=== PATIENT | male | born 1955 | race Caucasian/White ===

== ENCOUNTER 2018-02-25 05:19 | Inpatient (IN) | payer OTHER ==
[2018-02-25] MEDS ORDERED: GELATIN SIZE 100 SPONGE (06:08)
[2018-02-25] MEDS ORDERED: THROMBIN 5000 UNIT VIAL (06:09)
[2018-02-25] MEDS ORDERED: MIDAZOLAM 5 ML ×2 (06:59→08:50)
[2018-02-25] MEDS ORDERED: PHENYLephrine (100 MCG/ML) 5ML SYG ×2 (07:06→09:54)
[2018-02-25] MEDS ORDERED: POTASSIUM CHLORIDE 40 MEQ INJ (07:18)
[2018-02-25] MEDS ORDERED: HEPARIN 1000 UNITS/ML 10 ML INJ ×2 (07:18→08:30)
[2018-02-25] MEDS ORDERED: MAGNESIUM SULFATE (MG) 50% 10 ML INJ (07:19)
[2018-02-25] MEDS ORDERED: LIDOCAINE 100 MG SYRINGE (07:19)
[2018-02-25] MEDS ORDERED: AMINOCAPROIC ACID 5 GM INJ ×4 (07:19→09:55)
[2018-02-25] MEDS ORDERED: NA BICARBONATE 8.4% 50 ML SYG (07:19)
[2018-02-25] MEDS ORDERED: PHENYLephrine 10 MG INJ (07:20)
[2018-02-25] MEDS ORDERED: ALBUMIN HUMAN 25% 200 ML (07:20)
[2018-02-25] MEDS ORDERED: MANNITOL 20% 250 ML IV (07:20)
[2018-02-25] MEDS ORDERED: CA CHLORIDE 10% 10 ML SYRINGE (07:22)
[2018-02-25] MEDS ORDERED: CEFAZOLIN 1 GM INJ ×2 (08:09→10:08)
[2018-02-25] MEDS ORDERED: FUROSEMIDE 20 MG INJ (08:14)
[2018-02-25] MEDS ORDERED: HEPARIN 10,000 UNITS/ML 1 ML INJ (08:30)
[2018-02-25] MEDS: HEPARIN 1000 UNITS/ML 10 ML INJ (08:51)
[2018-02-25] MEDS: PAPAVERINE 60 MG INJ (08:52)
[2018-02-25] MEDS: VANCOMYCIN 1 GM INJ (08:52)
[2018-02-25] MEDS ORDERED: PROTAMINE 250 MG INJ (09:59)
[2018-02-25] MEDS ORDERED: hydrALAzine 20 MG INJ (10:18)
[2018-02-25] MEDS: ASPIRIN 600 MG SUPP PR (10:53)
[2018-02-25] MEDS ORDERED: GLUCOSE GEL 15 GRAM TUBE PO ×2 (11:00)
[2018-02-25] MEDS ORDERED: GLUCOSE GEL 15 GRAM TUBE BUCCAL (11:00)
[2018-02-25] MEDS ORDERED: HYDROmorphONE 0.5 MG/0.5 ML SYG IV (11:00)
[2018-02-25] MEDS: ACCU-CHEK XX ×13 (11:00→22:25)
[2018-02-25] MEDS ORDERED: INSULIN HUMAN REGULAR 100 UNIT in SOD CHLORIDE 0.9% 99 ML IV (11:00)
[2018-02-25] MEDS ORDERED: MAGNESIUM SULFATE 1 GM/D5W 100 ML IVPB (11:00)
[2018-02-25] MEDS ORDERED: DOPamine-D5W 1.6 MG/ML 250 ML IV (11:00)
[2018-02-25] MEDS ORDERED: GLUCAGON 1 MG INJ IM (11:00)
[2018-02-25] MEDS ORDERED: DEXTROSE 50% 50 ML SYRINGE IV ×2 (11:00)
[2018-02-25] MEDS ORDERED: ROCURONIUM 50 MG INJ (11:05)
[2018-02-25] MEDS ORDERED: ETOMIDATE 20 MG INJ (11:05)
[2018-02-25] MEDS ORDERED: LIDOCAINE 2% (SDV) 5 ML INJ ×2 (11:05)
[2018-02-25] MEDS ORDERED: NITROPRUSSIDE (11:06)
[2018-02-25] MEDS ORDERED: DOPamine-D5W 1.6 MG/ML 250 ML (11:06)
[2018-02-25] MEDS ORDERED: NITROGLYCERIN 50 MG/D5W (PMX) 250 ML (11:06)
[2018-02-25] MEDS: DOPamine-D5W 1.6 MG/ML 250 ML IV ×2 (11:30→18:27)
[2018-02-25] MEDS: NITROGLYCERIN 50 MG/D5W (PMX) 250 ML IV (11:30)
[2018-02-25 11:58] LABS: ADD MAN DIFF? NO
[2018-02-25] MEDS ORDERED: morphine 2 MG INJ IV (12:00)
[2018-02-25] MEDS ORDERED: morphine (1 MG/ML) 10ML SYRINGE IV ×2 (12:00)
[2018-02-25] MEDS ORDERED: NITROGLYCERIN 50 MG/D5W (PMX) 250 ML IV (12:00)
[2018-02-25 12:08] LABS: WHITE BLOOD COUNT 14.2 10^3/ul (4.8-10.8)
[2018-02-25 12:08] LABS: ABNORMAL IP MESSAGE 1; BASOPHILS % 0.3 % (0.0-2.0); EOSINOPHILS # 0.1 10^3/ul (0.0-0.5); EOSINOPHILS % 0.5 % (0.0-7.0); HEMATOCRIT 39.2 % (42.0-52.0); HEMOGLOBIN 13.3 g/dl (14.0-18.0); LYMPHOCYTES # 1.9 10^3/ul (0.8-2.9); LYMPHOCYTES % 13.7 % (15.0-51.0); MEAN CORPUSCULAR HEMOGLOBIN 29.8 pg (29.0-33.0); MEAN CORPUSCULAR HGB CONC 33.9 g/dl (32.0-37.0); MEAN CORPUSCULAR VOLUME 87.7 fl (82.0-101.0); MEAN PLATELET VOLUME 11.1 fl (7.4-10.4); MONOCYTE # 0.9 10^3/ul (0.3-0.9); MONOCYTES % 6.6 % (0.0-11.0); NEUTROPHIL # 11.1 10^3/ul (1.6-7.5); NEUTROPHILS % 78.1 % (39.0-77.0); PLATELET COUNT 98 10^3/UL (140-415); POSITIVE DIFF @See below; RED BLOOD COUNT 4.47 10^6/ul (4.70-6.10); RED CELL DISTRIBUTION WIDTH 13.2 % (11.5-14.5)
[2018-02-25] MEDS: POTASSIUM CHLORIDE 40 MEQ, CALCIUM CHLORIDE 10% 1 GM in DEXTROSE 5%-0.225% NACL 1,000 ML IV (12:08)
[2018-02-25 12:15] LABS: AADO2 Arterial 350.6 mmHg (7.0-24.0); Arterial Base Excess -2.3 mmol/L (-3.0-3); Arterial Blood Gas Oxygen Sat 97.6 mmHG (95.0-98.0); Arterial COHb 0.2 % (0.0-3.0); Arterial HCO3 22.7 mmol/L (22.0-26.0); Arterial MetHb 0.4 % (0.0-1.5); Arterial Total Hemglobin 14.8 g/dl (12.0-18.0); MODE VENT - AC; Site A-Line
[2018-02-25 12:16] LABS: MODE VENT - AC; MetHgb Mixed Venous 0.4 %; Mixed Venous COHb 0.3 %; Mixed Venous Fraction OxyHgb 85.7 %; Mixed Venous Oxygen Sat 86.3 mmHG (65.0-75.0); Mixed Venous Total Hemglobin 13.1 g/dl; Sample Type BLMV; Site OTHER
[2018-02-25 12:25] LABS: INR 1.41; PROTIME 17.5 Sec (11.9-14.9); PT RATIO 1.4
[2018-02-25] MEDS: morphine 2 MG INJ IV ×2 (12:38→18:09)
[2018-02-25 12:40] LABS: ANION GAP 8 (5-13); Estimated GFR > 60 mL/min (>60)
[2018-02-25 12:41] LABS: BLOOD UREA NITROGEN 12 mg/dl (7-20); CARBON DIOXIDE 23 mmol/L (21-31); CHLORIDE 110 mmol/L (97-110); CREATININE 0.82 mg/dl (0.61-1.24); GLUCOSE 120 mg/dl (70-220); MAGNESIUM 2.7 mg/dl (1.7-2.5); POTASSIUM 3.9 mmol/L (3.5-5.1); SODIUM 141 mmol/L (135-144)
[2018-02-25] MEDS: CEFAZOLIN 1 GM/50 ML (PMX) 50 ML IVPB ×2 (12:45→18:37)
[2018-02-25] MEDS: POTASSIUM CHLORIDE 50 ML IVPB ×3 (12:54→17:57)
[2018-02-25 13:03] LABS: PARTIAL THROMBOPLASTIN TIME 31.5 Sec (23.0-35.0)
[2018-02-25] MEDS: HYDROmorphONE 0.5 MG/0.5 ML SYG IV ×2 (13:34→15:43)
[2018-02-25] MEDS: ALBUMIN HUMAN 5% 250 ML IV ×2 (14:20→20:03)
[2018-02-25] MEDS ORDERED: NORepinephrine 8MG/250 ML (PMX 250 ML IV (15:30)
[2018-02-25] MEDS: ONDANSETRON 4 MG INJ IV (16:11)
[2018-02-25 16:12] LABS: AADO2 Arterial 142.3 mmHg (7.0-24.0); Arterial Base Excess -5.9 mmol/L (-3.0-3); Arterial Blood Gas Oxygen Sat 97.1 mmHG (95.0-98.0); Arterial COHb 0.4 % (0.0-3.0); Arterial Fraction of Oxyhgb 96.3 % (93.0-99.0); Arterial HCO3 19.1 mmol/L (22.0-26.0); Arterial MetHb 0.4 % (0.0-1.5); Arterial Total Hemglobin 14.2 g/dl (12.0-18.0); Blood Gas PS 10; MODE VENT - CPAP; Site A-Line
[2018-02-25] MEDS: MILRINONE LACTATE 2 MG in SOD CHLORIDE 0.9% 50 ML IV (17:00)
[2018-02-25] MEDS: NORepinephrine 8MG/250 ML (PMX 250 ML IV (17:00)
[2018-02-25] MEDS: INSULIN HUMAN REGULAR 100 UNIT in SOD CHLORIDE 0.9% 99 ML IVPB (17:00)
[2018-02-25] MEDS: HEPARIN (10000 UNITS/ML) 10,000 UNIT, MILRINONE LACTATE 10 MG in SOD CHLORIDE 0.9% 1,00... SC (17:00)
[2018-02-25] MEDS: EPINEPHrine 4 MG in DEXTROSE 5% 246 ML IV (17:00)
[2018-02-25] MEDS: PHENYLephrine 20MG IN 250 ML 250 ML IV (17:00)
[2018-02-25 17:14] LABS: ADD MAN DIFF? NO
[2018-02-25 17:18] LABS: BASOPHILS % 0.3 % (0.0-2.0); EOSINOPHILS % 0.1 % (0.0-7.0); HEMOGLOBIN 12.8 g/dl (14.0-18.0); LYMPHOCYTES % 7.2 % (15.0-51.0); MEAN CORPUSCULAR HGB CONC 33.7 g/dl (32.0-37.0); MEAN CORPUSCULAR VOLUME 89.2 fl (82.0-101.0); MEAN PLATELET VOLUME 11.1 fl (7.4-10.4); MONOCYTE # 1.3 10^3/ul (0.3-0.9); MONOCYTES % 9.9 % (0.0-11.0); PLATELET COUNT 113 10^3/UL (140-415); POSITIVE DIFF @See below; RED BLOOD COUNT 4.26 10^6/ul (4.70-6.10); RED CELL DISTRIBUTION WIDTH 13.6 % (11.5-14.5)
[2018-02-25 17:18] LABS: WHITE BLOOD COUNT 13.5 10^3/ul (4.8-10.8)
[2018-02-25 17:47] LABS: ANION GAP 6 (5-13); BLOOD UREA NITROGEN 14 mg/dl (7-20); CALCIUM 8.5 mg/dl (8.4-10.2); CARBON DIOXIDE 23 mmol/L (21-31); CHLORIDE 113 mmol/L (97-110); CREATININE 0.93 mg/dl (0.61-1.24); Estimated GFR > 60 mL/min (>60); GLUCOSE 168 mg/dl (70-220); MAGNESIUM 2.4 mg/dl (1.7-2.5); POTASSIUM 4.3 mmol/L (3.5-5.1); SODIUM 142 mmol/L (135-144)
[2018-02-25] MEDS ORDERED: morphine 4 MG/ML VIAL IV (18:00)
[2018-02-25] MEDS: OXYCODONE/ACETAMINOPHEN (5/325) TAB PO ×2 (19:24→22:23)
[2018-02-25] MEDS: KETOROLAC 15 MG INJ IV (19:24)
[2018-02-25] MEDS: FAMOTIDINE 20 MG INJ IV (19:38)
[2018-02-25] MEDS: FAMOTIDINE 20 MG TAB PO (19:42)
[2018-02-26] MEDS: ACCU-CHEK XX ×13 (00:04→12:00)
[2018-02-26] MEDS: OXYCODONE/ACETAMINOPHEN (5/325) TAB PO ×6 (00:34→21:24)
[2018-02-26] MEDS: KETOROLAC 15 MG INJ IV ×3 (00:38→14:14)
[2018-02-26] MEDS: CEFAZOLIN 1 GM/50 ML (PMX) 50 ML IVPB (02:38)
[2018-02-26 04:50] LABS: AADO2 Arterial 55.4 mmHg (7.0-24.0); Arterial Blood Gas Oxygen Sat 96.5 mmHG (95.0-98.0); Arterial COHb 0.5 % (0.0-3.0); Arterial Fraction of Oxyhgb 95.7 % (93.0-99.0); Arterial HCO3 22.4 mmol/L (22.0-26.0); Arterial MetHb 0.3 % (0.0-1.5); Arterial Total Hemglobin 13.5 g/dl (12.0-18.0); Arterial pCO2 41.4 mmhg (35-45); MODE NASAL CANNULA; Site A-Line
[2018-02-26 05:43] LABS: ADD MAN DIFF? NO
[2018-02-26 05:56] LABS: WHITE BLOOD COUNT 10.4 10^3/ul (4.8-10.8)
[2018-02-26 05:56] LABS: ABNORMAL IP MESSAGE 1; BASOPHILS % 0.3 % (0.0-2.0); EOSINOPHILS % 0.1 % (0.0-7.0); HEMATOCRIT 36.9 % (42.0-52.0); HEMOGLOBIN 12.2 g/dl (14.0-18.0); LYMPHOCYTES # 0.7 10^3/ul (0.8-2.9); LYMPHOCYTES % 6.4 % (15.0-51.0); MEAN CORPUSCULAR HEMOGLOBIN 29.7 pg (29.0-33.0); MEAN CORPUSCULAR HGB CONC 33.1 g/dl (32.0-37.0); MEAN CORPUSCULAR VOLUME 89.8 fl (82.0-101.0); MEAN PLATELET VOLUME 11.7 fl (7.4-10.4); MONOCYTE # 0.9 10^3/ul (0.3-0.9); MONOCYTES % 8.5 % (0.0-11.0); NEUTROPHIL # 8.8 10^3/ul (1.6-7.5); NEUTROPHILS % 84.4 % (39.0-77.0); PLATELET COUNT 99 10^3/UL (140-415); POSITIVE DIFF @See below; RED BLOOD COUNT 4.11 10^6/ul (4.70-6.10); RED CELL DISTRIBUTION WIDTH 13.8 % (11.5-14.5)
[2018-02-26 06:10] LABS: INR 1.36; PT RATIO 1.3
[2018-02-26 06:11] LABS: PARTIAL THROMBOPLASTIN TIME 34.4 Sec (23.0-35.0)
[2018-02-26 06:20] LABS: ANION GAP 9 (5-13); BLOOD UREA NITROGEN 16 mg/dl (7-20); CALCIUM 8.7 mg/dl (8.4-10.2); CARBON DIOXIDE 22 mmol/L (21-31); CHLORIDE 110 mmol/L (97-110); CREATININE 0.92 mg/dl (0.61-1.24); Estimated GFR > 60 mL/min (>60); GLUCOSE 138 mg/dl (70-220); MAGNESIUM 2.2 mg/dl (1.7-2.5); POTASSIUM 4.8 mmol/L (3.5-5.1); SODIUM 141 mmol/L (135-144)
[2018-02-26] MEDS: FAMOTIDINE 20 MG TAB PO ×2 (08:02→21:16)
[2018-02-26] MEDS ORDERED: ENOXAPARIN 40 MG/0.4 ML SYG SC (09:00)
[2018-02-26] MEDS: ENOXAPARIN 40 MG/0.4 ML SYG SC (09:25)
[2018-02-26 09:51] LABS: HEMOGLOBIN A1C 5.6 % (0-5.9)
[2018-02-26] MEDS: METOPROLOL (XL) 50 MG TAB PO (10:25)
[2018-02-26] MEDS: POTASSIUM CHLORIDE 40 MEQ, CALCIUM CHLORIDE 10% 1 GM in DEXTROSE 5%-0.225% NACL 1,000 ML IV (10:49)
[2018-02-26] MEDS ORDERED: DEXTROSE 50% 50 ML SYRINGE IV ×2 (13:30)
[2018-02-26] MEDS ORDERED: GLUCOSE GEL 15 GRAM TUBE PO ×2 (13:30)
[2018-02-26] MEDS ORDERED: GLUCOSE GEL 15 GRAM TUBE BUCCAL (13:30)
[2018-02-26] MEDS ORDERED: GLUCAGON 1 MG INJ IM (13:30)
[2018-02-26] MEDS: ONDANSETRON 4 MG INJ IV (13:52)
[2018-02-26] MEDS: ASPIRIN 325 MG TAB PO (14:24)
[2018-02-26] MEDS: FUROSEMIDE 20 MG INJ IV (14:26)
[2018-02-26] MEDS: INSULIN ASPART [NOVOLOG] 3 ML PEN SC ×2 (17:35→21:00)
[2018-02-26] MEDS: ATORVASTATIN 80 MG TAB PO (21:16)
[2018-02-27] MEDS: KETOROLAC 15 MG INJ IV ×2 (00:24→12:01)
[2018-02-27] MEDS: OXYCODONE/ACETAMINOPHEN (5/325) TAB PO ×3 (05:00→18:45)
[2018-02-27 05:21] LABS: ADD MAN DIFF? NO
[2018-02-27 05:32] LABS: ABNORMAL IP MESSAGE 1; BASOPHILS % 0.4 % (0.0-2.0); EOSINOPHILS # 0.1 10^3/ul (0.0-0.5); EOSINOPHILS % 1.2 % (0.0-7.0); HEMATOCRIT 35.8 % (42.0-52.0); HEMOGLOBIN 11.8 g/dl (14.0-18.0); LYMPHOCYTES # 1.6 10^3/ul (0.8-2.9); LYMPHOCYTES % 15.7 % (15.0-51.0); MEAN CORPUSCULAR HEMOGLOBIN 30.1 pg (29.0-33.0); MEAN CORPUSCULAR VOLUME 91.3 fl (82.0-101.0); MEAN PLATELET VOLUME 11.4 fl (7.4-10.4); MONOCYTE # 1.1 10^3/ul (0.3-0.9); MONOCYTES % 10.7 % (0.0-11.0); NEUTROPHIL # 7.2 10^3/ul (1.6-7.5); NEUTROPHILS % 71.6 % (39.0-77.0); PLATELET COUNT 96 10^3/UL (140-415); POSITIVE DIFF @See below; RED BLOOD COUNT 3.92 10^6/ul (4.70-6.10); RED CELL DISTRIBUTION WIDTH 13.8 % (11.5-14.5)
[2018-02-27 05:57] LABS: ANION GAP 10 (5-13); BLOOD UREA NITROGEN 17 mg/dl (7-20); CALCIUM 8.8 mg/dl (8.4-10.2); CARBON DIOXIDE 27 mmol/L (21-31); CHLORIDE 105 mmol/L (97-110); CREATININE 0.87 mg/dl (0.61-1.24); Estimated GFR > 60 mL/min (>60); GLUCOSE 98 mg/dl (70-220); POTASSIUM 4.3 mmol/L (3.5-5.1); SODIUM 142 mmol/L (135-144)
[2018-02-27] MEDS: FUROSEMIDE 20 MG INJ IV (06:06)
[2018-02-27] MEDS: ONDANSETRON 4 MG INJ IV (07:34)
[2018-02-27] MEDS: INSULIN ASPART [NOVOLOG] 3 ML PEN SC ×4 (07:35→20:36)
[2018-02-27] MEDS: FAMOTIDINE 20 MG TAB PO ×2 (09:26→20:36)
[2018-02-27] MEDS: METOPROLOL (XL) 50 MG TAB PO (09:26)
[2018-02-27] MEDS: ASPIRIN 81 MG TAB PO (09:26)
[2018-02-27] MEDS: ENOXAPARIN 40 MG/0.4 ML SYG SC (09:30)
[2018-02-27] MEDS: FUROSEMIDE 40 MG INJ IV (18:44)
[2018-02-27] MEDS: ATORVASTATIN 80 MG TAB PO (20:36)
[2018-02-28] MEDS: OXYCODONE/ACETAMINOPHEN (5/325) TAB PO ×4 (03:25→19:53)
[2018-02-28] MEDS: FUROSEMIDE 40 MG INJ IV ×2 (05:46→17:35)
[2018-02-28 07:45] LABS: ADD MAN DIFF? NO
[2018-02-28 07:55] LABS: BASOPHILS % 0.4 % (0.0-2.0); EOSINOPHILS # 0.2 10^3/ul (0.0-0.5); EOSINOPHILS % 2.4 % (0.0-7.0); HEMATOCRIT 40.6 % (42.0-52.0); HEMOGLOBIN 13.2 g/dl (14.0-18.0); LYMPHOCYTES # 1.4 10^3/ul (0.8-2.9); LYMPHOCYTES % 15.9 % (15.0-51.0); MEAN CORPUSCULAR HEMOGLOBIN 29.4 pg (29.0-33.0); MEAN CORPUSCULAR HGB CONC 32.5 g/dl (32.0-37.0); MEAN CORPUSCULAR VOLUME 90.4 fl (82.0-101.0); MEAN PLATELET VOLUME 11.5 fl (7.4-10.4); MONOCYTE # 0.7 10^3/ul (0.3-0.9); MONOCYTES % 8.3 % (0.0-11.0); NEUTROPHIL # 6.5 10^3/ul (1.6-7.5); NEUTROPHILS % 72.7 % (39.0-77.0); POSITIVE DIFF @See below; RED BLOOD COUNT 4.49 10^6/ul (4.70-6.10); RED CELL DISTRIBUTION WIDTH 13.4 % (11.5-14.5)
[2018-02-28 07:55] LABS: WHITE BLOOD COUNT 8.9 10^3/ul (4.8-10.8)
[2018-02-28] MEDS: INSULIN ASPART [NOVOLOG] 3 ML PEN SC ×4 (07:55→20:49)
[2018-02-28 08:12] LABS: PLATELET COUNT 123 10^3/UL (140-415)
[2018-02-28 08:26] LABS: ANION GAP 10 (5-13); BLOOD UREA NITROGEN 20 mg/dl (7-20); CARBON DIOXIDE 33 mmol/L (21-31); CHLORIDE 98 mmol/L (97-110); CREATININE 1.09 mg/dl (0.61-1.24); Estimated GFR > 60 mL/min (>60); GLUCOSE 131 mg/dl (70-220); POTASSIUM 4.1 mmol/L (3.5-5.1); SODIUM 141 mmol/L (135-144)
[2018-02-28] MEDS: ASPIRIN 81 MG TAB PO (08:57)
[2018-02-28] MEDS: METOPROLOL (XL) 50 MG TAB PO (08:57)
[2018-02-28] MEDS: FAMOTIDINE 20 MG TAB PO ×2 (08:57→20:29)
[2018-02-28] MEDS: ONDANSETRON 4 MG INJ IV (08:57)
[2018-02-28] MEDS: ENOXAPARIN 40 MG/0.4 ML SYG SC (08:59)
[2018-02-28] MEDS: SENNA TAB PO (20:28)
[2018-02-28] MEDS: ATORVASTATIN 80 MG TAB PO (20:29)
[2018-03-01] MEDS: OXYCODONE/ACETAMINOPHEN (5/325) TAB PO ×4 (01:40→16:40)
[2018-03-01] MEDS: MAGNESIUM HYDROXIDE 30ML CUP PO (06:21)
[2018-03-01] MEDS: FUROSEMIDE 40 MG INJ IV (06:22)
[2018-03-01 06:58] LABS: ADD MAN DIFF? NO
[2018-03-01 07:08] LABS: BASOPHILS % 0.5 % (0.0-2.0); EOSINOPHILS # 0.2 10^3/ul (0.0-0.5); EOSINOPHILS % 2.8 % (0.0-7.0); HEMATOCRIT 38.3 % (42.0-52.0); HEMOGLOBIN 12.7 g/dl (14.0-18.0); LYMPHOCYTES # 1.2 10^3/ul (0.8-2.9); LYMPHOCYTES % 14.7 % (15.0-51.0); MEAN CORPUSCULAR HEMOGLOBIN 30.1 pg (29.0-33.0); MEAN CORPUSCULAR HGB CONC 33.2 g/dl (32.0-37.0); MEAN CORPUSCULAR VOLUME 90.8 fl (82.0-101.0); MEAN PLATELET VOLUME 11.2 fl (7.4-10.4); MONOCYTE # 0.8 10^3/ul (0.3-0.9); MONOCYTES % 9.2 % (0.0-11.0); NEUTROPHIL # 5.9 10^3/ul (1.6-7.5); NEUTROPHILS % 72.3 % (39.0-77.0); PLATELET COUNT 138 10^3/UL (140-415); POSITIVE DIFF @See below; RED BLOOD COUNT 4.22 10^6/ul (4.70-6.10); RED CELL DISTRIBUTION WIDTH 13.2 % (11.5-14.5)
[2018-03-01 07:08] LABS: WHITE BLOOD COUNT 8.2 10^3/ul (4.8-10.8)
[2018-03-01 07:47] LABS: ANION GAP 5 (5-13); BLOOD UREA NITROGEN 20 mg/dl (7-20); CALCIUM 8.9 mg/dl (8.4-10.2); CARBON DIOXIDE 34 mmol/L (21-31); CHLORIDE 100 mmol/L (97-110); CREATININE 0.91 mg/dl (0.61-1.24); Estimated GFR > 60 mL/min (>60); GLUCOSE 107 mg/dl (70-220); POTASSIUM 4.3 mmol/L (3.5-5.1); SODIUM 139 mmol/L (135-144)
[2018-03-01] MEDS: INSULIN ASPART [NOVOLOG] 3 ML PEN SC ×4 (07:55→20:21)
[2018-03-01] MEDS: ONDANSETRON 4 MG INJ IV ×2 (08:01→19:41)
[2018-03-01] MEDS: ASPIRIN 81 MG TAB PO (08:07)
[2018-03-01] MEDS: METOPROLOL (XL) 50 MG TAB PO (08:07)
[2018-03-01] MEDS: SENNA TAB PO ×2 (08:07→20:10)
[2018-03-01] MEDS: FAMOTIDINE 20 MG TAB PO ×2 (08:07→20:10)
[2018-03-01] MEDS: ENOXAPARIN 40 MG/0.4 ML SYG SC (08:12)
[2018-03-01] MEDS ORDERED: ASPIRIN (EC) 81 MG TAB PO (15:00)
[2018-03-01] MEDS: CLOPIDOGREL 75 MG TAB PO (15:09)
[2018-03-01] MEDS: FUROSEMIDE 20 MG INJ IV (17:25)
[2018-03-01] MEDS: ATORVASTATIN 80 MG TAB PO (20:10)
[2018-03-01] MEDS: traMADol 50 MG TAB PO (21:48)
[2018-03-02] MEDS: MAGNESIUM HYDROXIDE 30ML CUP PO (05:16)
[2018-03-02 06:11] LABS: ADD MAN DIFF? NO
[2018-03-02 06:12] LABS: WHITE BLOOD COUNT 8.2 10^3/ul (4.8-10.8)
[2018-03-02 06:12] LABS: BASOPHIL # 0.1 10^3/ul (0.0-0.1); BASOPHILS % 0.7 % (0.0-2.0); EOSINOPHILS # 0.2 10^3/ul (0.0-0.5); EOSINOPHILS % 2.4 % (0.0-7.0); HEMATOCRIT 38.5 % (42.0-52.0); HEMOGLOBIN 12.8 g/dl (14.0-18.0); LYMPHOCYTES # 0.9 10^3/ul (0.8-2.9); LYMPHOCYTES % 10.8 % (15.0-51.0); MEAN CORPUSCULAR HEMOGLOBIN 29.7 pg (29.0-33.0); MEAN CORPUSCULAR HGB CONC 33.2 g/dl (32.0-37.0); MEAN CORPUSCULAR VOLUME 89.3 fl (82.0-101.0); MEAN PLATELET VOLUME 10.8 fl (7.4-10.4); MONOCYTE # 0.8 10^3/ul (0.3-0.9); MONOCYTES % 9.8 % (0.0-11.0); NEUTROPHIL # 6.2 10^3/ul (1.6-7.5); NEUTROPHILS % 75.5 % (39.0-77.0); PLATELET COUNT 153 10^3/UL (140-415); RED BLOOD COUNT 4.31 10^6/ul (4.70-6.10); RED CELL DISTRIBUTION WIDTH 13.2 % (11.5-14.5)
[2018-03-02 06:39] LABS: ANION GAP 6 (5-13); BLOOD UREA NITROGEN 20 mg/dl (7-20); CALCIUM 9.2 mg/dl (8.4-10.2); CARBON DIOXIDE 34 mmol/L (21-31); CHLORIDE 97 mmol/L (97-110); CREATININE 0.95 mg/dl (0.61-1.24); Estimated GFR > 60 mL/min (>60); GLUCOSE 126 mg/dl (70-220); POTASSIUM 4.1 mmol/L (3.5-5.1); SODIUM 137 mmol/L (135-144)
[2018-03-02] MEDS: LACTULOSE 30ML CUP PO (07:30)
[2018-03-02] MEDS: INSULIN ASPART [NOVOLOG] 3 ML PEN SC (07:55)
[2018-03-02] MEDS: FAMOTIDINE 20 MG TAB PO (08:05)
[2018-03-02] MEDS: ASPIRIN (EC) 81 MG TAB PO (08:05)
[2018-03-02] MEDS: CLOPIDOGREL 75 MG TAB PO (08:05)
[2018-03-02] MEDS: SENNA TAB PO (08:05)
[2018-03-02] MEDS: METOPROLOL (XL) 50 MG TAB PO (08:06)
[2018-03-02] MEDS: FUROSEMIDE 40 MG TAB PO (08:06)
[2018-03-02] MEDS: ENOXAPARIN 40 MG/0.4 ML SYG SC (08:12)
[2018-03-02] MEDS: traMADol 50 MG TAB PO (09:26)
== END 2018-03-02 12:00 | disposition home or self-care (01) | DRG 235 ==
LOC: REC 05:19 → TEL 02-27 17:30 → ICU 11:33
PROC: 02100Z9 Bypass Coronary Artery, One Artery from Left Internal Mammary, Open Approach (ICD-10-PCS; principal; 2018-02-25 07:04)
PROC: 021109W Bypass Coronary Artery, Two Arteries from Aorta with Autologous Venous Tissue, Open Approach (ICD-10-PCS; 2018-02-25 07:04)
PROC: 06BP4ZZ Excision of Right Saphenous Vein, Percutaneous Endoscopic Approach (ICD-10-PCS; 2018-02-25 07:04)
PROC: 5A1221Z Performance of Cardiac Output, Continuous (ICD-10-PCS; 2018-02-25 07:04)
PROC: 5A1223Z Performance of Cardiac Pacing, Continuous (ICD-10-PCS; 2018-02-25 07:04)
DX: I25.10 Atherosclerotic heart disease of native coronary artery without angina pectoris (principal); I50.33 Acute on chronic diastolic (congestive) heart failure; J98.11 Atelectasis; I11.0 Hypertensive heart disease with heart failure; D69.6 Thrombocytopenia, unspecified; D64.9 Anemia, unspecified; E87.70 Fluid overload, unspecified; E11.9 Type 2 diabetes mellitus without complications; E78.00 Pure hypercholesterolemia, unspecified; E78.5 Hyperlipidemia, unspecified; K21.9 Gastro-esophageal reflux disease without esophagitis; E66.9 Obesity, unspecified; Z68.36 Body mass index [BMI] 36.0-36.9, adult; Z95.5 Presence of coronary angioplasty implant and graft; Z87.891 Personal history of nicotine dependence; Z79.82 Long term (current) use of aspirin; Z79.02 Long term (current) use of antithrombotics/antiplatelets
CPT/HCPCS: 36592; 36600; 71045; 80048; 82803; 82962; 83036; 83735; 84100; 85025; 85610; 85730; 86850; 86870; 86900; 86901; 86902; 86920; 87081; 93005; 93312; 93320; 93325; 94002; 97116; 97163; 97530